=== PATIENT | female | born 1935 | race Caucasian/White ===

== ENCOUNTER 2016-12-31 13:52 | Day surgery (SDC) | payer MEDICARE, OTHER ==
[~2016-12-31 13:52] MED LIST: BENI40TA30 PO; GUAISOL PO; LORA0.5T PO; NEXI40CA PO; ROBA750T3 PO; ZITH250T PO
[2016-12-31 14:23] VITALS: BP 165/87; PULSE 97; RESP 20; TEMP 97.9; O2SAT 98
[2016-12-31] MEDS ORDERED: ESTR42.5V VAGINAL (14:29)
[2016-12-31] MEDS ORDERED: LOSA50TA PO (14:29)
[2016-12-31] MEDS ORDERED: LORA-373 PO (14:30)
[2016-12-31] MEDS ORDERED: ROPIVACAINE 1% PF INJ 20 ML AMP ONE (16:23)
[2016-12-31] MEDS ORDERED: TRIAMCINOLONE ACETONIDE 40 MG/ML VIAL ONE (16:23)
[2016-12-31 17:10] VITALS: BP 180/90; PULSE 92; RESP 18; O2SAT 100
[2016-12-31] MEDS ORDERED: IOHEXOL 350 MG/ML 50 ML BTL (for RAD DIAG) ONE (17:54)
[2016-12-31 20:26] LABS: WBC, SYNOVIAL FLUID 26 /MM3 (0-200)
--- NOTE | 2017-01-01 13:49 | RADRPT ---
EXAM DATE/TIME: 12/31/2016 16:44 [facility] COMPARISON: No previous studies available for comparison. INDICATIONS : History of ganglion cysy left hip. MEDICAL HISTORY : HTN SURGICAL HISTORY : bilateral breast lumectomy, left hip arthroplasty, lumbar surgery ENCOUNTER: Initial ACUITY: 1 week PAIN SCORE: 8/10 LOCATION: Left hip FLUORO TIME: 0.2 minutes CONTRAST: 25cc Omnipaque (iohexol) 350 DEVICE: 18 gauge needle was placed into the left hip joint MEDICATIONS: 1.) 4 cc Lidocaine HIP JIONT 2.) 4 cc ropivacaine (Naropin) HIP JOINT 3.) 1 cc triamcinolone (Kenalog) HIP JOINT RESPONSE: Pre procedure pain level was 8/10. Post procedure pain level was 1/10. FLUID: Total volume of 8 cc of clear, yellow fluid was removed. Fluid specimen was submitted to the lab for evaluation. PROCEDURE : The risks, benefits and alternatives to the procedure were explained and verbal and written consent w as obtained. The site was prepped in sterile fashion. Full sterile technique was used, including ca p, mask, sterile gloves and gown and a large sterile sheet. Hand hygiene and 2% chlorhexidine and/or betadine/alcohol prep was utilized per protocol for cutaneous antisepsis. The skin and subcutaneous tissues were infiltrated with local anesthetic solution. Under sterile conditions and using aseptic technique with fluoroscopic guidance the fluid collection lateral to the joint was punctured and positive contrast was injected to confirm position. Following this, the prescribed mixture of Kenalog and local anesthetics was injected. The patient tolerated t he procedure well and there were no complications. CONCLUSION: Uncomplicated therapeutic injection performed under fluoroscopic guidance. Perico Tucker MD on January 01, 2017 at 13:42 Board Certified Radiologist. This report was verified electronically.
--- NOTE | 2017-01-01 13:49 | RADRPT ---
EXAM DATE/TIME: 12/31/2016 16:44 [facility] COMPARISON: No previous studies available for comparison. INDICATIONS : History of ganglion cyst left hip. MEDICAL HISTORY : HTN SURGICAL HISTORY : bilateral breast lumpectomy, left hip arthroplasty, lumbar surgery ENCOUNTER: Initial ACUITY: 1 week PAIN SCORE: 8/10 LOCATION: Left HIP FLUORO TIME: 0.2 minutes CONTRAST: 25 cc Omnipaque 350 MEDICATION(S): 1.) 4 cc Lidocaine HIP JOINT 2.) 4 cc ropivacaine (Naropin) HIP JOINT 3.) 1 cc triamcinolone (Kenalog) HIP JOINT DEVICE(S): 18 gauge needle was placed into the left hip joint. RESPONSE: Pre procedure pain level was 8/10 Post procedure pain level was 1/10 FLUID: Total volume of8 cc of clear yellow fluid was removed. PROCEDURE : 1. Fluoroscopically and ultrasound guided ganglion cyst aspiration. The risks, benefits and alternatives to the procedure were explained and verbal and written consent w as obtained. The site was prepped in sterile fashion. Full sterile technique was used, including ca p, mask, sterile gloves and gown and a large sterile sheet. Hand hygiene and 2% chlorhexidine and/or betadine/alcohol prep was utilized per protocol for cutaneous antisepsis. The skin and subcutaneous tissues were infiltrated with local anesthetic solution. With ultrasound and fluoroscopic guidance the multilobular collection was localized and 8 cc of oily fluid was removed characteristic of joint fluid. The patient tolerated the procedure well and there were no complications. CONCLUSION: Uncomplicated aspiration as above. Perico Tucker MD on January 01, 2017 at 13:47 Board Certified Radiologist. This report was verified electronically.
== END 2016-12-31 17:45 | disposition home or self-care (01) ==
LOC: HROP 13:52 → HRIP 13:54 → HROP 17:45
PROVIDERS: ATTEND Orthopaedic Surgery
DX: M25.552 Pain in left hip (principal); I10 Essential (primary) hypertension; Z96.642 Presence of left artificial hip joint
CPT/HCPCS: 20610; 77002; 87070; 87205; 89051; 89060; J2795; J3301; Q9967